=== PATIENT | female | born 1980 | race Caucasian/White ===

== ENCOUNTER 2021-06-27 16:51 | Emergency (ER) | payer OTHER ==
[~2021-06-27] VITALS: Ht 172.7 cm; Wt 98.0 kg
[2021-06-27 16:51] VITALS: BP 126/96
[2021-06-27] MEDS ORDERED: normal saline 1000ML IV soln IVB ONE (17:10)
[2021-06-27] MEDS ORDERED: diphenhydrAMINE 50 mg/ml inj IV ONE (17:15)
[2021-06-27] MEDS ORDERED: ketorolac trometh. 30mg/ml inj. IV ONE (17:15)
[2021-06-27] MEDS ORDERED: proCHLORperazine 10 MG/2 ml inj IV ONE (17:15)
[2021-06-27] MEDS ORDERED: SUMAtriptan succ. 6 MG/0.5ml vial SQ ONE (17:15)
[2021-06-27] MEDS ORDERED: ketorolac trometh inj. 60 MG/2 ML VIAL IM ONE (17:45)
[2021-06-27] MEDS ORDERED: diphenhydrAMINE 25mg capsule PO ONE (17:45)
[2021-06-27] MEDS ORDERED: proCHLORperazine 10 MG/2 ml inj IM ONE (17:45)
[2021-06-27] MEDS ORDERED: ONDA8TAB13 PO (17:54)
[2021-06-27] MEDS ORDERED: SUMA6VIA17 SQ (17:54)
== END 2021-06-27 18:22 | disposition home or self-care (01) ==
LOC: ER 16:52
DX: G43.909 Migraine, unspecified, not intractable, without status migrainosus (principal); R11.10 Vomiting, unspecified; Z79.899 Other long term (current) drug therapy
CPT/HCPCS: 96372; 99284; J0780; J1885; J3030; Q0163